=== PATIENT | female | born 1980 | race Caucasian/White ===

== ENCOUNTER → 2017-01-05 | Outpatient (CLI) | payer OTHER ==
[~2017-01-05] VITALS: Ht 162.6 cm; Wt 68.0 kg
[~2017-01-05] MED LIST: ACET50TA PO; AMOX875T PO; COLA100C PO; IBUP-1114 PO; LIDOCAINE 2% INJ 100 MG/5 ML SDV (FOR ANES.) As Ordered ONE; NS 1,000 ML IV SCH; PRENTAB55 PO; PRIL20CA9 PO; PROPOFOL 200 MG/20 ML VIAL As Ordered ONE; ZANT1TAB PO
--- NOTE | 2017-01-05 10:17 | ROOR ---
Patient Name: Kathrin Li Procedure Date: 01/05/2017 10:06 AM Date of : 1980 Age: 36 Room: [facility] Gender: Female Note Status: Finalized Procedure: Upper GI endoscopy Indications: Functional Dyspepsia, Heartburn Providers: Rufino CHRISTIE MD Referring MD: REHANA KIMBALL MD Requesting Provider: Medicines: Monitored Anesthesia Care Complications: No immediate complications. Procedure: Pre-Anesthesia Assessment: - The heart rate, respiratory rate, oxygen saturations, blood pressure, adequacy of pulmonary ventilation, and response to care were monitored throughout the procedure. The Endoscope was introduced through the mouth, and advanced to the second part of duodenum. The upper GI endoscopy was accomplished without difficulty. The patient tolerated the procedure well. Findings: The esophagus was normal. The stomach was normal. The examined duodenum was normal. Impression: - Normal esophagus. - Normal stomach. - Normal examined duodenum. - No specimens collected. - Non-erosive esophageal reflux (NERD) disease present. Recommendation: - Observe patient's clinical course. - Follow an antireflux regimen. Rufino Christie MD Rufino CHRISTIE MD 01/05/2017 10:16:28 AM This report has been signed electronically. Number of Addenda: 0 Note Initiated On: 01/05/2017 10:06 AM Estimated Blood Loss: Estimated blood loss: none.
[2017-01-05 10:34] VITALS: BP 117/82
== END | disposition home or self-care (01) ==
LOC: M OPP 09:42
PROVIDERS: ATTEND Internal Medicine Gastroenterology
DX: K30 Functional dyspepsia (principal); K21.9 Gastro-esophageal reflux disease without esophagitis; Z79.1 Long term (current) use of non-steroidal anti-inflammatories (NSAID); Z79.899 Other long term (current) drug therapy; Z91.018 Allergy to other foods

== ENCOUNTER → 2017-06-18 | Outpatient (CLI) | payer OTHER ==
[~2017-06-18] VITALS: Ht 164.5 cm; Wt 68.0 kg
[~2017-06-18] MED LIST changes: -COLA100C PO; +COLA100C5 PO; +NS 1,000 ML IV ONE; -NS 1,000 ML IV SCH
--- NOTE | 2017-06-18 15:40 | ROOR ---
Patient Name: Kathrin Li Procedure Date: 06/18/2017 3:16 PM Date of : 1980 Age: 36 Room: [id number] Gender: Female Note Status: Finalized Procedure: Colonoscopy Indications: Screening in patient at increased risk: Colorectal cancer in father before age <50, Incidental - Hematochezia, History of anal fissure. Providers: Rufino CHRISTIE MD Referring MD: ISELA CARABALLO MD Requesting Provider: Medicines: Monitored Anesthesia Care Complications: No immediate complications. Procedure: Pre-Anesthesia Assessment: - The heart rate, respiratory rate, oxygen saturations, blood pressure, adequacy of pulmonary ventilation, and response to care were monitored throughout the procedure. The Colonoscope was introduced through the anus and advanced to 4 cm into the ileum. The colonoscopy was performed without difficulty. The patient tolerated the procedure well. The quality of the bowel preparation was good. Findings: The perianal and digital rectal examinations were normal. The colon (entire examined portion) appeared normal. The terminal ileum appeared normal. Impression: - The perianal and digital rectal examinations were normal. - The entire colon is normal. - The examined portion of the ileum was normal. - No specimens collected. Recommendation: - Repeat colonoscopy in 5 years for screening purposes. Rufino Christie MD Rufino CHRISTIE MD 06/18/2017 3:39:44 PM This report has been signed electronically. Number of Addenda: 0 Note Initiated On: 06/18/2017 3:16 PM Estimated Blood Loss: Estimated blood loss: none.
[2017-06-18 16:00] VITALS: BP 104/68
== END | disposition home or self-care (01) ==
LOC: M OPP 14:14
PROVIDERS: ATTEND Internal Medicine Gastroenterology
DX: K62.5 Hemorrhage of anus and rectum (principal); Z80.0 Family history of malignant neoplasm of digestive organs; K21.9 Gastro-esophageal reflux disease without esophagitis; E16.2 Hypoglycemia, unspecified; F41.9 Anxiety disorder, unspecified; F33.9 Major depressive disorder, recurrent, unspecified; Z79.899 Other long term (current) drug therapy; Z91.018 Allergy to other foods